=== PATIENT | male | born 1985 | race Two or more races ===

== ENCOUNTER 2024-05-29 20:15 | Emergency (ER) | payer OTHER ==
[~2024-05-29] VITALS: Ht 172.7 cm; Wt 140.6 kg
[2024-05-29] MEDS ORDERED: MILLIPRED5 MG PO (20:26)
[2024-05-29] MEDS ORDERED: ATIVAN1 M1 PO (20:26)
[2024-05-29] MEDS ORDERED: BENADRYL ALLERG25 MG (20:27)
[2024-05-29] MEDS ORDERED: PROZAC20 MG PO (20:27)
[2024-05-29] MEDS ORDERED: CEFTRIAXONE SODIUM 1,000 MG VIAL IM STA (20:52)
[2024-05-29 21:32] LABS: HEMATOCRIT 45.5 % (39.0-48.0); HEMOGLOBIN 15.5 g/dL (13-16.00); MEAN CELL VOLUME 87.1 fL (80.0-100.00); MEAN CORPUSCULAR HEMOGLOBIN 29.7 pg (27.00-32.0); MEAN CORPUSCULAR HGB CONC 34.1 g/dl (32.0-36.0); PLATELET COUNT 255 K/uL (150-450); RED BLOOD COUNT 5.22 M/uL (4.00-6.00); RED CELL DISTRIBUTION WIDTH 14.1 % (11.5-14.5)
== END 2024-05-29 22:36 | disposition home or self-care (01) ==
LOC: ER 20:18
PROVIDERS: General Practice
DX: R53.81 Other malaise (principal); J06.9 Acute upper respiratory infection, unspecified; Z20.822 Contact with and (suspected) exposure to COVID-19; Z91.013 Allergy to seafood